=== PATIENT | male | born 1960 | race Caucasian/White ===

== ENCOUNTER 2021-12-10 15:32 | Outpatient (CLI) | payer BC, SELFPAY ==
[2021-12-12 20:36] LABS: COVID-19 IgG Index by CIA >100.00 IV (<=0.99); COVID-19 IgG by CIA Interp Positive (Negative)
== END 2021-12-10 15:33 | disposition home or self-care (01) ==
PROVIDERS: PCP Family Medicine; Visit Provider Family Medicine
DX: U07.1 COVID-19 (principal); C83.10 Mantle cell lymphoma, unspecified site
CPT/HCPCS: 86769

== ENCOUNTER 2022-01-16 15:26 | Outpatient (CLI) | payer BC, SELFPAY ==
[2022-01-16 13:47] LABS: Albumin* 4.3 g/dL (3.3-5.0)
[2022-01-16 13:48] LABS: Chloride* 106 mmol/L (96-114); Potassium* 4.2 mmol/L (3.6-5.1); Sodium* 139 mmol/L (135-149)
[2022-01-16 13:50] LABS: Bilirubin Total* 0.7 mg/dL (0.1-1.5); Estimated Glomerular Filt Rate 86 ml/min
[2022-01-16 13:51] LABS: Alanine Aminotransferase* 33 U/L (4-50); Alkaline Phosphatase* 88 U/L (40-150); Aspartate Amino Transferase* 40 U/L (12-35); Blood Urea Nitrogen* 19 mg/dL (7-30); Calcium* 9.3 mg/dL (8.4-10.6); Carbon Dioxide* 24 mmol/L (20-32); Glucose* 89 mg/dL (60-115); Total Protein* 6.4 g/dL (6.0-8.3)
[2022-01-16 14:22] LABS: PSA Screen* 3.81 ng/mL (0.10-4.00)
[2022-01-23 23:47] LABS: Sex Hormone Binding Globulin 83 nmol/L (19-76); Testosterone, Free LC-MS/MS 92.6 pg/mL (47.0-244.0); Testosterone, LC-MS/MS 840 ng/dL (300-720)
== END 2022-01-16 15:27 | disposition home or self-care (01) ==
PROVIDERS: PCP Family Medicine; Visit Provider Family Medicine
DX: E03.9 Hypothyroidism, unspecified (principal); R79.89 Other specified abnormal findings of blood chemistry; I10 Essential (primary) hypertension; Z12.5 Encounter for screening for malignant neoplasm of prostate
CPT/HCPCS: 80053; 84153; 84270; 84402; 84403

== ENCOUNTER 2022-01-18 10:45 | Outpatient (RCR) | payer BC, SELFPAY | END 2022-03-22 10:02 | disposition home or self-care (01) | PROVIDERS: PCP Family Medicine; Visit Provider Family Medicine | DX: R53.81 Other malaise (principal); Z51.89 Encounter for other specified aftercare | CPT/HCPCS: 97110; 97161; 97530 ==